=== PATIENT | male | born 1970 | race Caucasian/White ===

== ENCOUNTER 2024-04-23 15:07 | Emergency (ER) | payer MEDICAID, SELFPAY ==
[2024-04-23 15:08] VITALS: BMI 31.8
[2024-04-23 15:28] VITALS: BP 109/76; PULSE 93; RESP 18; TEMP 37.1; O2SAT 99
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
[2024-04-23] MEDS: oxyCODONE/APAP 5/325 TABLET 1 TAB PO (15:43)
[2024-04-23] MEDS: cefTRIAXone 500 MG, LIDOCAINE 1% 20 ML 1 ML IM (15:46)
== END 2024-04-23 16:14 | disposition home or self-care (01) ==
PROVIDERS: Emergency Provider Emergency Medicine
DX: K04.7 Periapical abscess without sinus (principal); K02.9 Dental caries, unspecified
CPT/HCPCS: 96372; 99283; J0696; J3490; A9270

== ENCOUNTER 2024-05-20 11:41 | Emergency (ER) | payer MEDICAID, SELFPAY ==
[2024-05-20 12:09] VITALS: BP 120/75; PULSE 90; RESP 19; TEMP 36.6; O2SAT 99; BMI 32.8
--- NOTE | 2024-05-20 12:18 | EDNOTE_ITS ---
ED Dental RME/HPI General Chief complaint: Dental/Oral/Throat Stated complaint: INFECTED TOOTH/BROKEN TOOTH x 2 DAYS Time Seen by Provider: 05/20/24 11:59 Source: patient Arrival date/time: 05/20/24 11:41 53-year-old male reports with complaints of lower right molar tooth ache and swelling x 2 days. Patient reports having a cancel dental's appointment in March to have the tooth pulled. Patient states that he has an appointment in 3 weeks for tooth extraction. Patient denies any fever or chills but does complain of earache and headache. Patient reports not take any medications for symptoms Mode of arrival: ambulatory Related Data Home Medications ?Medication ?Instructions ?Recorded ?Confirmed levothyroxine 175 mcg tablet 175 mcg PO QDAY 05/26/20 05/26/20 multivitamin 1 tab PO QAM 05/26/20 05/26/20 Previous Rx's ?Medication ?Instructions ?Recorded docusate sodium 100 mg capsule 100 mg PO BID #60 caps 05/27/20 (Colace) hydrocodone 7.5 mg-acetaminophen 1 tab PO Q6H PRN pain (scale score 05/27/20 325 mg tablet ([place]) 7-10) #20 tabs ibuprofen 600 mg tablet 600 mg PO Q8H PRN pain (scale 05/27/20 score 4-6) #15 tabs ibuprofen 800 mg tablet 800 mg PO TID PRN pain #30 tabs 11/17/23 hydrocodone 5 mg-acetaminophen 325 1 tab PO BID PRN pain #14 tabs 02/24/24 mg tablet oxycodone-acetaminophen 5 mg-325 1 tab PO TID PRN pain #15 tabs 04/23/ mg tablet (Percocet) chlorhexidine gluconate 0.12 % 15 ml buccal BID 5 days #473 mL 05/20/24 mouthwash clindamycin HCl 300 mg capsule 300 mg PO Q8H 7 days #21 caps 05/20/24 Allergies Allergy/AdvReac Type Severity Reaction Status Date / Time No Known Allergies Allergy Verified 05/20/24 11:44 Review of Systems Review of Systems Systems Reviewed: All systems reviewed, normal except as documented Narrative Review of Systems: Gen: No fever, no chills, no weight loss EYES: No discharge, no visual changes, no pain HEENT: No ear pain, no congestion, no sore throat, +dental pain PULM: No shortness of breath, no cough, no congestion CV: No chest pain, no dyspnea on exertion, no palpitations GI: No nausea, no vomiting, no diarrhea, no pain, no constipation : No frequency, no urgency,? no dysuria Musc/skel: No joint pain, no back pain Skin: No rash? Psyc: No hallucinations, no depression Heme/Lymph: No easy bleeding or bruising tendencies Neuro: No weakness, no headache ED Exam Narrative Physical exam: General: Sittiing in Exam table in no acute distress, answering questions appropriately HENT: normocephalic, atraumatic, EOMI, PERRLA, moist mucous membranes, + poor dentition exposed root lower right #31 Chest: chest wall is nontender Cardiac: regular rate and rhythm, normal S1 and S2, no murmurs, rubs, or gallops, capillary refill ?2 seconds Pulmonary: clear to auscultation bilaterally, no wheezing, crackles, or rhonchi Abdominal: active bowel sounds, soft, nontender, nondistended Neuro: A&OX3, CN II-XII intact, sensation grossly intact bilaterally in UE and LE. Skin: no rashes, no ecchymosis Ext: no lower extremity edema Course Quality Measures none Orders Category Date Time Status Clindamycin Vial [Cleocin vial] Med 05/20/24 12:12 Discontinued 600 mg IM X1 ONE Vital Signs Vital signs: Vital Signs Temperature 97.8 F 05/20/24 12:09 Pulse Rate 90 05/20/24 12:09 Respiratory Rate 19 05/20/24 12:09 Blood Pressure 120/75 05/20/24 12:09 Pulse Oximetry (%) 99 05/20/24 12:09 Oxygen Delivery Method Room Air 05/20/24 12:09 Dental / Oral MDM Narrative MDM Narrative:: This is a 53-year-old male who returns on the second occasion for possible dental infection. Has had multiple appointments with his dentist however has not had his tooth extracted. He does have an upcoming appointment in a couple weeks for tooth extraction. He is concerned with dental infection. Patient not immunosuppressed. No e/o tooth fracture, avulsion, or bleeding socket. No e/o RPA, CUSTOMER CONTACT SALES ASSOCIATE, Gaurang?s angina, periapical abscess. No e/o gingival hyperplasia or concern for drug reaction. Rx Ibuprofen. Will treat empirically with antibiotics before his extraction. Disposition: Discharge home. Discussed return precautions for odontogenic infections and other dental pain emergencies. Advised to keep his appointment with this dentist. Patient data External records reviewed:: [facility] previous records Clinical information provided by:: patient Social determinants that could affect healthcare access:: none Patient has the following chronic illnesses:: none How is presenting disease/condition affected by chronic disease/condition?: no chronic disease Evaluation data The following diagnostics were reviewed and interpreted by me:: other (specify) Lab and/or radiology exams considered but not ordered:: none Interpretation Summary: none Medications / Prescriptions Medications or Prescriptions considered but not ordered:: none Medication administrations:: Medication Administration History Discontinued Medications Clindamycin Phosphate (Clindamycin Phos Inj 150 Mg/Ml Vial 6 Ml) 600 mg IM X1 ONE Stop: 05/20/24 12:13 Last Admin: 05/20/24 12:32 Dose: 600 mg Documented By: MIKHAIL all medications administered and effective Consultations Consultation(s) initiated? (list below): No Diagnosis Dental Differential Diagnosis: dental abscess Most likely diagnosis given after review of the tests above:: Dental abscess Admission Indicated Admission indicated?: not indicated Explain why admission is indicated or not indicated:: none Admission Request Was there a request for admission?: No Disposition Plan Disposition Plan: Discharge Discharge Attestation Discharge Attestation: The patient and all family members were given an opportunity to ask questions and understood the discharge instructions. Discharge instructions specifically effects, indications for sooner follow up or return to the emergency department, and the expected course of current diagnosis. Patient condition: Stable Discharge Plan Plan Patient Disposition: HOME (Self Care) Patient condition on transfer: Stable Prescriptions/Referrals Prescriptions/Med Rec: New clindamycin HCl 300 mg capsule 300 mg PO Q8H 7 Days Qty: 21 0RF chlorhexidine gluconate 0.12 % mouthwash 15 ml buccal BID 5 Days Qty: 473 0RF Rx Instructions: 15ml swish/spit for 30 seconds and spit BID for 5 days No Action multivitamin Tablet 1 tab PO QAM levothyroxine 175 mcg Tablet 175 mcg PO QDAY hydrocodone-acetaminophen [[place]] 7.5-325 mg tablet 1 tab PO Q6H MDD 4 PRN (Reason: pain (scale score 7-10)) Qty: 20 0RF ibuprofen 600 mg tablet 600 mg PO Q8H PRN (Reason: pain (scale score 4-6)) Qty: 15 0RF docusate sodium [Colace] 100 mg capsule 100 mg PO BID Qty: 60 0RF ibuprofen 800 mg tablet 800 mg PO TID PRN (Reason: pain) Qty: 30 0RF hydrocodone-acetaminophen 5-325 mg tablet 1 tab PO BID MDD 10mg PRN (Reason: pain) Qty: 14 0RF oxycodone-acetaminophen [Percocet] 5-325 mg tablet 1 tab PO TID MDD 4 g APAP PRN (Reason: pain) Qty: 15 0RF Problem List Clinical Impression: Dental abscess Patient/Caregiver Discharge Instructions Discharge Activity: activity as tolerated Education Materials: ED Dental Abscess Additional Instructions: Is very important that you keep your appointment with your dentist for your procedure. Please take the antibiotics as directed. Make sure you use the mouthwash as directed Follow-up with your primary doctor 3 days for follow-up care Return to the emergency department if there is any worsening symptoms change in condition. Print Language: Croatian Stand Alone Forms: Teri Award Info., Patient Portal Info Letter PA/FORENSIC ANALYST Supervising Physician PA/FORENSIC ANALYST Supervising Physician: Dr Graves
[2024-05-20] MEDS: CLINDAMYCIN PHOS INJ 150 MG/ML VIAL 6 ML 600 MG IM (12:32)
== END 2024-05-20 12:44 | disposition home or self-care (01) ==
LOC: SERX 12:26
PROVIDERS: Emergency Provider Emergency Medicine
DX: K04.7 Periapical abscess without sinus (principal)
CPT/HCPCS: 96372; 99283; J0736

== ENCOUNTER → 2025-01-25 | Outpatient (CLI) | payer BC, MEDICAID, SELFPAY ==
--- NOTE | 2025-01-25 10:39 | EKG_ITS ---
[facility] Test Date: 2025-01-25 Pat Name: JACQUELINE LIZARRAGA Department: Room: - Gender: Male Java Enterprise Architect: JAMES : 1970 Requested By: Harinder Taylor (PCP) Order Number: [id number] Reading MD: Harinder Taylor (PCP) Measurements Intervals [place] Rate: 67 P: -19 AK: 193 QRS: -42 QRSD: 93 T: 8 QT: 381 QTc: 404 Interpretive Statements SINUS RHYTHM MARKED LEFT AXIS DEVIATION [QRS AXIS < -30] MINIMAL VOLTAGE CRITERIA FOR LVH, CONSIDER NORMAL VARIANT [MEETS CRITERIA IN ONE OF: R(aVL), S(V1), R(V5), R(V5/V6)+S(V1)] Compared to ECG 05/26/2020 07:42:01 No significant changes /store/S0/[id number].pdf
[2025-01-25 11:00] LABS: Collection Type, Urine Clean Catch; Squamous Epithelial Cell,Urine 0 /hpf (0-5)
[2025-01-25 11:31] LABS: Basophils # (Auto) 0.1 Thou/mm3 (0.0-0.2); Basophils % (Auto) 1 % (0-2.5); Eosinophils # (Auto) 0.2 Thou/mm3 (0.0-0.5); Eosinophils % (Auto) 2 % (0-10); Hematocrit 59.7 % (41.0-53.0); Immature Granulocytes Auto 0.06 Thou/mm3 (0.00-0.00); Lymphocytes # (Auto) 1.8 Thou/mm3 (1.0-4.8); Lymphocytes % (Auto) 16 % (10-50); Mean Corpuscular HGB Conc 33.5 g/dl (31.0-37.0); Mean Corpuscular Hemoglobin 29.5 pg (25.0-35.0); Mean Corpuscular Volume 88 fL (80-100); Monocytes # (Auto) 0.8 Thou/mm3 (0.0-0.8); Monocytes % (Auto) 7 % (0-12); Neutrophils # (Auto) 8.1 Thou/mm3 (1.8-7.7); Neutrophils % (Auto) 74 % (37-80); Nucleated Red Blood Cell # 0.00 Thou/mm3 (0.00-0.00); Nucleated Red Blood Cell % 0 /100 WBC (0); Platelet Count 255 Thou/mm3 (140-440); RDW Standard Deviation 45.4 fL (35.1-43.9); Red Blood Count 6.77 Miln/mm3 (4.50-5.90); White Blood Count 11.0 Thou/mm3 (3.8-10.6)
[2025-01-25 11:33] LABS: Bilirubin,Urine Negative (Negative); Blood,Urine 1+ (Negative); Clarity,Urine Clear (Clear/Hazy); Color,Urine Lt-Yellow (Lt Yel-Yel); Glucose, Urine Negative (Negative); Ketones,Urine Negative (Negative); Leukocyte Esterase,Urine Negative (Negative); Nitrite,Urine Negative (Negative); PH,Urine 7.5 (5.0-7.0); Protein,Urine Negative (Neg - Trace); RBC,Urine 11 /hpf (0-3); Specific Gravity,Urine 1.020 (1.001-1.035); Urobilinogen,Urine Negative mg/dL (0.0-1.0); WBC,Urine 1 /hpf (0-5)
[2025-01-25 11:34] LABS: Hemoglobin 20.0 g/dL (13.5-16.0)
[2025-01-25 11:45] LABS: B-Type Natriuretic Peptide 21 pg/mL (0-100)
[2025-01-25 11:56] LABS: Vitamin D 25 Hydroxy Total 33.9 ng/mL (7.3-40.2)
[2025-01-25 12:10] LABS: Alanine Aminotransferase < 7 U/L (10-49); Albumin, Serum 4.8 gm/dL (3.5-5.0); Albumin/Globulin Ratio 1.8 (1.2-2.2); Alkaline Phosphatase 78 U/L (46-116); Anion Gap 7 (7-16); Aspartate Amino Transferase 11 U/L (0-34); BUN/Creatinine Ratio 11 Ratio (12-20); Bilirubin,Total 0.8 mg/dL (0.3-1.2); Blood Urea Nitrogen 12 mg/dL (9-23); Calcium 9.9 mg/dL (8.3-10.6); Calcium (Corrected) 9.9 mg/dL (8.5-10.1); Carbon Dioxide 28.6 mMol/L (20.0-31.0); Cardiac Risk Estimate 3.5 RATIO (4.0-6.7); Chloride 104 mMol/L (98-107); Cholesterol 149 mg/dL (132-200); Creatinine (Component) 1.1 mg/dL (0.6-1.3); Globulin 2.6 gm/dL (2.3-3.5); Glucose 106 mg/dL (74-106); HDL Cholesterol 42 mg/dL (40-60); LDL Cholesterol,Calculated 82 mg/dL (0-130); Osmolality,Calculated 279 (275-295); Potassium 4.4 mMol/L (3.4-5.1); Sodium 140 mMol/L (136-145); Thyroid Stimulating Hormone 1.37 uIU/mL (0.55-4.78); Total Protein 7.4 gm/dL (5.7-8.2); Triglycerides 123 mg/dL (30-150); eGFR > 60 See Note
[2025-02-01 06:34] LABS: Testosterone, Free,Dialysis 221.2 pg/mL (35.0-155.0); Testosterone, Total, Dialysis 960 ng/dL (250-1100)
== END | disposition home or self-care (01) ==
PROVIDERS: PCP Family Medicine; Referring Provider Family Medicine; Visit Provider Family Medicine
DX: Z00.00 Encounter for general adult medical examination without abnormal findings (principal); Z13.0 Encounter for screening for diseases of the blood and blood-forming organs and certain disorders involving the immune mechanism; Z13.29 Encounter for screening for other suspected endocrine disorder; Z13.21 Encounter for screening for nutritional disorder; Z13.220 Encounter for screening for lipoid disorders; Z13.1 Encounter for screening for diabetes mellitus; Z12.11 Encounter for screening for malignant neoplasm of colon; Z83.3 Family history of diabetes mellitus
CPT/HCPCS: 36415; 80053; 80061; 81001; 82306; 83880; 84402; 84403; 84443; 85025; 87086; 93005

== ENCOUNTER → 2025-01-29 | Outpatient (CLI) | payer BC, MEDICAID, SELFPAY ==
[2025-01-29 10:07] LABS: Prostate Specific Antigen 0.71 ng/mL (0-4.00)
== END | disposition home or self-care (01) ==
LOC: COPL 08:57
PROVIDERS: PCP Family Medicine; Referring Provider Family Medicine; Visit Provider Family Medicine
DX: Z12.5 Encounter for screening for malignant neoplasm of prostate (principal)
CPT/HCPCS: 36415; 84153